=== PATIENT | male | born 1955 | race Caucasian/White ===

== ENCOUNTER 2017-12-25 20:29 | Emergency (ER) | payer OTHER, SELFPAY ==
[2017-12-25 20:34] VITALS: BP 127/72; PULSE 57; RESP 18; TEMP 37.1; O2SAT 56; BMI 25.7
--- NOTE | 2017-12-25 21:27 | PC.NURSE ---
reports 10/10 pain when chewing/cold/pressure
--- NOTE | 2017-12-25 21:35 | ED.DENTAL ---
HPI - Dental/Oral General Chief complaint: Dental/Oral Stated complaint: thinks he cracked a tooth Time Seen by Provider: 12/25/17 20:33 Source: patient and family Mode of arrival: ambulatory Limitations: no limitations History of Present Illness HPI Narrative: Patient presents to the ER with the chief complaint of R upper dental fracture while grinding his babita REYNOLDS Complaint: tooth pain and tooth injury 1. Onset (ago): hour(s) Duration: constant Severity: mild Exacerbating factors: chewing Context: history of dental caries Related Data Home Medications Medication Instructions Recorded Confirmed aspirin PRN #0 07/08/12 ibuprofen #0 07/08/12 lisinopril #0 07/08/12 simvastatin #0 07/08/12 Previous Rx's Medication Instructions Recorded hydrocodone-acetaminophen 1 tab PO Q6H PRN #10 tab 12/25/17 Allergies Allergy/AdvReac Type Severity Reaction Status Date / Time No Known Allergies Allergy Uncoded 11/09/17 12:21 Review of Systems Review of Systems All systems reviewed & are unremarkable except as noted in HPI and below Constitutional Denies chills, Denies fever(s), Denies lethargy and Denies weakness Eyes Denies change in vision, Denies eye discharge, Denies irritation and Denies loss of vision ENT Ears, Nose, Mouth, and Throat: Denies change in voice, Reports mouth pain, Denies neck pain and Denies sore throat Cardiovascular Denies chest pain, Denies irregular heart rhythm, Denies lightheadedness, Denies palpitations, Denies dyspnea, Denies dyspnea on exertion and Denies orthopnea Respiratory Denies cough, Denies dyspnea, Denies dyspnea on exertion and Denies wheezing Gastrointestinal Gastrointestinal: Denies abdominal pain, Denies change in bowel habits, Denies diarrhea, Denies nausea and Denies vomiting Genitourinary Denies hematuria, Denies flank pain, Denies urinary incontinence and Denies urinary urgency Musculoskeletal Denies neck pain Integumentary/Breasts Denies pruritus, Denies erythema, Denies rash and Denies wounds Neurologic Denies confusion, Denies loss of vision and Denies weakness Psychiatric Denies anxiety, Denies confusion, Denies depression, Denies homicidal ideation and Denies suicidal ideation Endocrine Denies palpitations Hematologic/Lymphatic Denies easy bruising Allergic/Immunologic Denies wheezing PFSH Social History Smoking Status: Never smoker Exam Initial Vital Signs Initial Vital Signs: Vital Signs Temperature 98.7 F 12/25/17 20:34 Pulse Rate 57 L 12/25/17 20:34 Respiratory Rate 18 12/25/17 20:34 Blood Pressure 127/72 H 12/25/17 20:34 Pulse Oximetry 56 L 12/25/17 20:34 Const General: cooperative and well developed Nutritional Appearance: well nourished Orientation: alert, awake, oriented x3 and not confused HENMI Head: normocephalic and atraumatic Ears: external ears normal and TM's normal bilaterally Nose: external nose normal and No nasal discharge Face and sinus: sinuses nontender, face symmetric, no sinus tenderness and No dry mucous membranes Mouth: oral mucosae normal and moist mucous membranes Teeth and gingiva: abnormal tooth or associated gingiva Throat: tonsils normal and uvula midline Resp Effort & Inspection: normal respiratory effort, able to speak in complete sentences, no respiratory distress and no use of accessory muscles Auscultation: clear to auscultation bilaterally, no rales, no rhonchi and no wheezes GI Inspection: non-distended Palpation: soft, no hepatosplenomegaly, No guarding, No pulsatile mass and No tender Auscultation: normal bowel sounds Skin General: no rashes or lesions noted, No jaundice and No petechiae Neuro General: alert, oriented x3, gait normal and no focal motor deficits Speech: speech normal Psych Appearance: well kempt Mental Status: mental status grossly normal Attitude: cooperative Thought Content: normal and suicidality Judgment: judgment good Course Orders Ordered: Discontinued Medications Hydrocodone Bitart/Acetaminophen (Vicodin Prepack) 1 bottle [facility] SEEINSTR ONE Stop: 12/25/17 21:37 Last Admin: 12/25/17 21:45 Dose: 1 bottle Vital Signs - 8 hr 12/25/17 20:34 12/25/17 21:49 Temperature 98.7 F Pulse Rate 57 L 61 Respiratory Rate 18 16 Blood Pressure 127/72 H 122/72 H Pulse Oximetry 56 L 99 Discharge Plan Departure Patient Disposition: Home, Self-Care Clinical Impression: Toothache Discharge Date/Time: 12/25/17 21:50 Interventions: ED Discharge Assessment Last Done: 12/25/17 21:49 Instructions: DI for Dental Pain Activity Restrictions/Additional Instructions: Please follow-up with your dentist Jacqueline morning, I provided contact info for Dr. Almanza if your dentist is unable to see You Take Motrin around the clock for anti-inflammatory and pain control You have been prescribed narcotic medications. While on these medications you cannot drive or operate heavy machinery. Additionally you cannot sign legal documents or perform any duties such as this. Many people get constipated on narcotic medications so it would be advisable to discuss stool softeners with the pharmacist when you pharmacy picking tech your prescription. Please understand that we cannot provide further refills of narcotics or controlled substances through the ED and your pain management will need to be through your Primary Care Provider Prescriptions: New hydrocodone-acetaminophen 5-325 mg tablet 1 tab PO Q6H PRN (Reason: pain) Qty: 10 RF: 0 No Action simvastatin 20 MG tablet Qty: 0 RF: 0 aspirin 81 MG tablet,delayed release (DR/EC) PRN (Reason: Pain, Mild) Qty: 0 RF: 0 lisinopril 10 MG tablet Qty: 0 RF: 0 ibuprofen 600 MG tablet Qty: 0 RF: 0 Referrals: Lucio Almanza DMD [Physician] - Kerwin Lal MD [Primary Care Provider] -
[2017-12-25] MEDS: HYDROCODONE/ACET 5/325 PREPACK 1 BOTTLE MISC (21:45)
[2017-12-25 21:49] VITALS: BP 122/72; PULSE 61; RESP 16; O2SAT 99
--- NOTE | 2017-12-26 03:18 | ED_ITS ---
HPI - Dental/Oral General Chief complaint: Dental/Oral Stated complaint: thinks he cracked a tooth Time Seen by Provider: 12/25/17 20:33 Source: patient and family Mode of arrival: ambulatory Limitations: no limitations History of Present Illness HPI Narrative: Patient presents to the ER with the chief complaint of R upper dental fracture while grinding his babita REYNOLDS Complaint: tooth pain and tooth injury 2 1. Onset (ago): hour(s) Duration: constant Severity: mild Exacerbating factors: chewing Context: history of dental caries Related Data Home Medications Medication Instructions Recorded Confirmed aspirin PRN #0 07/08/12 ibuprofen #0 07/08/12 lisinopril #0 07/08/12 simvastatin #0 07/08/12 Previous Rx's Medication Instructions Recorded hydrocodone-acetaminophen 1 tab PO Q6H PRN #10 tab 12/25/17 Allergies Allergy/AdvReac Type Severity Reaction Status Date / Time No Known Allergies Allergy Uncoded 11/09/17 12:21 Review of Systems Review of Systems All systems reviewed & are unremarkable except as noted in HPI and below Constitutional Denies chills, Denies fever(s), Denies lethargy and Denies weakness Eyes Denies change in vision, Denies eye discharge, Denies irritation and Denies loss of vision ENT Ears, Nose, Mouth, and Throat: Denies change in voice, Reports mouth pain, Denies neck pain and Denies sore throat Cardiovascular Denies chest pain, Denies irregular heart rhythm, Denies lightheadedness, Denies palpitations, Denies dyspnea, Denies dyspnea on exertion and Denies orthopnea Respiratory Denies cough, Denies dyspnea, Denies dyspnea on exertion and Denies wheezing Gastrointestinal Gastrointestinal: Denies abdominal pain, Denies change in bowel habits, Denies diarrhea, Denies nausea and Denies vomiting Genitourinary Denies hematuria, Denies flank pain, Denies urinary incontinence and Denies urinary urgency Musculoskeletal Denies neck pain Integumentary/Breasts Denies pruritus, Denies erythema, Denies rash and Denies wounds Neurologic Denies confusion, Denies loss of vision and Denies weakness Psychiatric Denies anxiety, Denies confusion, Denies depression, Denies homicidal ideation and Denies suicidal ideation Endocrine Denies palpitations Hematologic/Lymphatic Denies easy bruising Allergic/Immunologic Denies wheezing PFSH Social History Smoking Status: Never smoker Exam Initial Vital Signs Initial Vital Signs: Vital Signs Temperature 98.7 F 12/25/17 20:34 Pulse Rate 57 L 12/25/17 20:34 Respiratory Rate 18 12/25/17 20:34 Blood Pressure 127/72 H 12/25/17 20:34 Pulse Oximetry 56 L 12/25/17 20:34 Const General: cooperative and well developed Nutritional Appearance: well nourished Orientation: alert, awake, oriented x3 and not confused [facility] Head: normocephalic and atraumatic Ears: external ears normal and TM's normal bilaterally Nose: external nose normal and No nasal discharge Face and sinus: sinuses nontender, face symmetric, no sinus tenderness and No dry mucous membranes Mouth: oral mucosae normal and moist mucous membranes Teeth and gingiva: abnormal tooth or associated gingiva Throat: tonsils normal and uvula midline Resp Effort & Inspection: normal respiratory effort, able to speak in complete sentences, no respiratory distress and no use of accessory muscles Auscultation: clear to auscultation bilaterally, no rales, no rhonchi and no wheezes GI Inspection: non-distended Palpation: soft, no hepatosplenomegaly, No guarding, No pulsatile mass and No tender Auscultation: normal bowel sounds Skin General: no rashes or lesions noted, No jaundice and No petechiae Neuro General: alert, oriented x3, gait normal and no focal motor deficits Speech: speech normal Psych Appearance: well kempt Mental Status: mental status grossly normal Attitude: cooperative Thought Content: normal and suicidality Judgment: judgment good Course Orders Ordered: Discontinued Medications Hydrocodone Bitart/Acetaminophen (Vicodin Prepack) 1 bottle [facility] ONE Stop: 12/25/17 21:37 Last Admin: 12/25/17 21:45 Dose: 1 bottle Vital Signs - 8 hr 12/25/17 20:34 12/25/17 21:49 Temperature 98.7 F Pulse Rate 57 L 61 Respiratory Rate 18 16 Blood Pressure 127/72 H 122/72 H Pulse Oximetry 56 L 99 Discharge Plan Departure Patient Disposition: Home, Self-Care Clinical Impression: Toothache Discharge Date/Time: 12/25/17 21:50 Interventions: ED Discharge Assessment Last Done: 12/25/17 21:49 Instructions: DI for Dental Pain Activity Restrictions/Additional Instructions: Please follow-up with your dentist Jacqueline morning, I provided contact info for Dr. Almanza if your dentist is unable to see You Take Motrin around the clock for anti-inflammatory and pain control You have been prescribed narcotic medications. While on these medications you cannot drive or operate heavy machinery. Additionally you cannot sign legal documents or perform any duties such as this. Many people get constipated on narcotic medications so it would be advisable to discuss stool softeners with the pharmacist when you cone picker your prescription. Please understand that we cannot provide further refills of narcotics or controlled substances through the ED and your pain management will need to be through your Primary Care Provider Prescriptions: New hydrocodone-acetaminophen 5-325 mg tablet 1 tab PO Q6H PRN (Reason: pain) Qty: 10 RF: 0 No Action simvastatin 20 MG tablet Qty: 0 RF: 0 aspirin 81 MG tablet,delayed release (DR/EC) PRN (Reason: Pain, Mild) Qty: 0 RF: 0 lisinopril 10 MG tablet Qty: 0 RF: 0 ibuprofen 600 MG tablet Qty: 0 RF: 0 Referrals: Lucio Almanza DMD [Physician] - Kerwin Lal MD [Primary Care Provider] -
== END 2017-12-25 21:50 | disposition home or self-care (01) ==
PROVIDERS: Emergency Provider Emergency Medicine; PCP Internal Medicine
DX: K08.89 Other specified disorders of teeth and supporting structures (principal)
CPT/HCPCS: 99282; 99283

== ENCOUNTER 2019-02-21 10:34 | Day surgery (SDC) | payer OTHER, SELFPAY ==
[2019-02-21] VITALS (7 sets, daily range): BP systolic 108–121; BP diastolic 66–75; PULSE 54–71; RESP 10–16; TEMP 36.4–36.9; O2SAT 93–99; BMI 26.3
--- NOTE | 2019-02-21 12:25 | PM.HP.1 ---
History of Present Illness Chief complaint: 44520 Patient History Medical History (Updated 02/21/19 @ 12:26 by Mirian Diop MD) Hypercholesterolemia (Acute) Hypertension (Acute) Social History household members: spouse Smoking Status: Never smoker Family & Social History Social History: household members spouse Tobacco & Substance use: Smoking Status Never smoker alcohol intake frequency 0-2 drinks per day Substance Use Type does not use Meds Home Medications Medication Instructions Recorded Confirmed Type lisinopril 5 mg DAILY #0 07/08/12 History rosuvastatin 10 mg DAILY 02/21/19 02/21/19 History Allergies Allergy/AdvReac Type Severity Reaction Status Date / Time No Known Allergies Allergy Uncoded 11/09/17 12:21 Exam Vital Signs (past 8 hours): - 02/21/19 10:52 Temperature 97.5 F L Pulse Rate 62 Respiratory Rate 15 Blood Pressure 121/72 Pulse Oximetry 97 Oxygen Delivery Method Room Air Narrative Exam Narrative: Oropharynx free of lesions Chest clear to auscultation percussion Cardiac exam reveals no S3 or murmur Assessment & Plan Assessment & Plan narrative: History of colon polyps need for follow-up colonoscopy. Risks, benefits, alternatives have been explained.
--- NOTE | 2019-02-21 12:26 | PM.OP.ENDO ---
Operative Date/Time/Diagnoses Date of procedure: 02/21/19 Time of procedure: 12:27 Pre-op diagnosis: See indication and findings Procedure & Clinicians Study performed: Colonoscopy Same procedure as scheduled: Yes Indications: History of colon polyps Surgeon: Mirian Diop Procedure Notes Procedure in detail: After informed consent was obtained the patient was placed in left lateral decubitus position video colonoscope was introduced the rectum slowly advanced to the cecum. Preparation was good. On slow withdrawal mucosa looked carefully examined. On withdrawal retroflexed view in the rectum was performed. Patient tolerated procedure well Blood loss none Complications none Sedation Total sedation time 17 minutes Versed 6 mg fentanyl 100 micro g IV titration Findings 1. Normal colonoscopy to cecum Follow-up colonoscopy in 10 years.
[2019-02-21] MEDS: fentaNYL 250 MCG/5 ML INJ IV (12:50)
[2019-02-21] MEDS: MIDAZOLAM 5 MG/5 ML VIAL IV (12:51)
--- NOTE | 2019-02-21 13:23 | SUR.PHASEI ---
1312 Aroused easily to voice, oriented, HOB elevated, water given. Asking appropriate questions. Report give to [facility]PD RN.
== END 2019-02-21 13:40 | disposition home or self-care (01) ==
LOC: ENDO 10:34
PROVIDERS: PCP Internal Medicine; Visit Provider Internal Medicine Gastroenterology
PROC: 0DJD8ZZ Inspection of Lower Intestinal Tract, Via Natural or Artificial Opening Endoscopic (ICD-10-PCS; CPT 45378; principal; 2019-02-21 12:30)
DX: Z86.010 Personal history of colon polyps (principal); E78.00 Pure hypercholesterolemia, unspecified; I10 Essential (primary) hypertension
CPT/HCPCS: 45378; J2250; J3010

== ENCOUNTER → 2020-05-14 19:14 | Outpatient (ROUT) | payer OTHER, SELFPAY ==
[2020-05-14 19:41] LABS: Aspartate Aminotransferase 31 IU/L (17-59); BUN Creatinine Ratio 18.4 (6-22); Blood Urea Nitrogen 14 mg/dL (9-20); Calcium 9.6 mg/dL (8.4-10.2); Carbon Dioxide 31 mmol/L (22-32); Chloride 105 mmol/L (98-107); Cholesterol 105 mg/dL (140-199); Estimated Glomerular Filt Rate > 60.0 mL/min (>60); Glucose 95 mg/dL (80-110); HDL Cholesterol 43 mg/dL (40-60); HEMOLYSIS < 15 (0-50); LDL Cholesterol Calculated 48 mg/dL (<100); Potassium 4.4 mmol/L (3.4-5.1); Sodium 141 mmol/L (137-145); Triglycerides 72 mg/dL (35-150)
== END ==
PROVIDERS: PCP Internal Medicine; Visit Provider Internal Medicine
DX: N40.1 Benign prostatic hyperplasia with lower urinary tract symptoms (principal); I10 Essential (primary) hypertension; E78.2 Mixed hyperlipidemia
CPT/HCPCS: 80048; 80061; 84153; 84450

== ENCOUNTER → 2021-11-18 16:11 | Outpatient (CLI) | payer OTHER, SELFPAY ==
[2021-11-18 17:14] LABS: Hematocrit 48.3 % (41-53); Hemoglobin 16.3 g/dL (13.5-17.5); Mean Corpuscular HGB Conc 33.9 % (30-36); Mean Corpuscular Hemoglobin 30.9 PG (26-34); Mean Corpuscular Volume 91.3 fL (80-100); Platelet Count 202 X10^3/uL (150-400); Red Blood Cell Count 5.28 X10^6/uL (4.5-5.9); Red Cell Distribution Width 13.6 % (11.6-14.8); White Blood Cell Count 6.6 X10^3/uL (4.5-11.0)
[2021-11-18 17:27] LABS: Alanine Aminotransferase 20 IU/L (<50); Albumin 4.6 g/dL (3.5-5.0); Albumin Globulin Ratio 1.4 (1.0-2.8); Alkaline Phosphatase 47 U/L (38-126); Aspartate Aminotransferase 32 IU/L (17-59); BUN Creatinine Ratio 18.6 (6-22); Bilirubin Total 0.4 mg/dL (0.2-1.3); Blood Urea Nitrogen 16 mg/dL (9-20); Calcium 8.8 mg/dL (8.4-10.2); Carbon Dioxide 29 mmol/L (22-32); Chloride 105 mmol/L (98-107); Cholesterol 143 mg/dL (140-199); Estimated Glomerular Filt Rate > 60 mL/min (>60); Globulin 3.2 g/dL (1.7-4.1); Glucose 92 mg/dL (80-110); HDL Cholesterol 43 mg/dL (40-60); HEMOLYSIS 17 (0-50); LDL Cholesterol Calculated 76 mg/dL (<100); Potassium 4.1 mmol/L (3.4-5.1); Sodium 142 mmol/L (137-145); Total Protein 7.8 g/dL (6.3-8.2); Triglycerides 121 mg/dL (35-150)
[2021-11-18 17:56] LABS: Prostate Specific Antigen Scrn 0.303 ng/mL (0.1-4.0)
== END ==
PROVIDERS: PCP Internal Medicine; Referring Provider Internal Medicine; Visit Provider Internal Medicine
DX: Z00.00 Encounter for general adult medical examination without abnormal findings (principal); E78.2 Mixed hyperlipidemia; Z12.5 Encounter for screening for malignant neoplasm of prostate
CPT/HCPCS: 36415; 80053; 80061; 84443; 85027; G0103

== ENCOUNTER → 2023-08-25 08:32 | Outpatient (CLI) | payer OTHER, SELFPAY ==
--- NOTE | 2023-08-25 08:33 | DI.RAD.S_ITS ---
PROCEDURE: XR LUMBAR SPINE 2-3V INDICATIONS: low back pain TECHNIQUE: 3 views of the lumbar spine were acquired. COMPARISON: [facility], , L-SPINE 2-3 VIEWS, 12/22/2015, 10:17. FINDINGS: Bones: 5 [id number] vertebrae are present. There is normal bony alignment. No vertebral body compression fractures. There is loss of the expected lumbar lordosis unchanged from the study dated December 22, 2015. Slightly increased degenerative changes are present at L3-4, L4-5, and L5-S1 including intervertebral disc space narrowing, endplate sclerosis, and osteophytosis. Soft tissues: Overlying bowel gas pattern is normal. No suspicious soft tissue calcifications. IMPRESSION: No acute bony abnormality. Increased degenerative change when compared with the 2016 study. No compression deformities. Dictated by: Paulina Abarca M.D. on 08/25/2023 at 13:36 Approved by: Paulina Abarca M.D. on 08/25/2023 at 13:37
[2023-08-25 10:30] LABS: Aspartate Aminotransferase 31 IU/L (17-59); BUN Creatinine Ratio 16.7 (6-22); Blood Urea Nitrogen 14 mg/dL (9-20); Calcium 9.4 mg/dL (8.4-10.2); Carbon Dioxide 28 mmol/L (22-32); Chloride 104 mmol/L (98-107); Cholesterol 129 mg/dL (140-199); Estimated Glomerular Filt Rate > 60 mL/min (>60); Glucose 96 mg/dL (80-110); HDL Cholesterol 42 mg/dL (40-60); HEMOLYSIS < 15 (0-50); LDL Cholesterol Calculated 63 mg/dL (<100); Potassium 4.9 mmol/L (3.4-5.1); Sodium 139 mmol/L (137-145); Triglycerides 120 mg/dL (35-150)
[2023-08-25 10:57] LABS: Prostate Specific Antigen 0.428 ng/mL (0.10-4.00)
== END ==
PROVIDERS: PCP Internal Medicine; Referring Provider Internal Medicine; Visit Provider Internal Medicine
DX: M47.816 Spondylosis without myelopathy or radiculopathy, lumbar region (principal); M47.817 Spondylosis without myelopathy or radiculopathy, lumbosacral region; E78.2 Mixed hyperlipidemia; N40.0 Benign prostatic hyperplasia without lower urinary tract symptoms; M54.50 Low back pain, unspecified; G89.29 Other chronic pain
CPT/HCPCS: 36415; 72100; 80048; 80061; 84153; 84450

== ENCOUNTER → 2024-09-12 12:56 | Outpatient (CLI) | payer OTHER, SELFPAY ==
[2024-09-12 13:52] LABS: Aspartate Aminotransferase 31 IU/L (17-59); BUN Creatinine Ratio 14.8 (6-22); Blood Urea Nitrogen 13 mg/dL (9-20); Calcium 9.6 mg/dL (8.4-10.2); Carbon Dioxide 29 mmol/L (22-32); Chloride 104 mmol/L (98-107); Cholesterol 136 mg/dL (140-199); Estimated Glomerular Filt Rate > 60 mL/min (>60); Glucose 105 mg/dL (80-110); HDL Cholesterol 40 mg/dL (40-60); HEMOLYSIS < 15 (0-50); LDL Cholesterol Calculated 34 mg/dL (<100); Potassium 4.5 mmol/L (3.4-5.1); Sodium 139 mmol/L (137-145); Triglycerides 310 mg/dL (35-150)
[2024-09-12 14:21] LABS: Prostate Specific Antigen 0.405 ng/mL (0.10-4.00)
== END ==
PROVIDERS: PCP Internal Medicine; Referring Provider Internal Medicine; Visit Provider Internal Medicine
DX: N40.1 Benign prostatic hyperplasia with lower urinary tract symptoms (principal); N13.8 Other obstructive and reflux uropathy; E78.2 Mixed hyperlipidemia; R03.0 Elevated blood-pressure reading, without diagnosis of hypertension
CPT/HCPCS: 36415; 80048; 80061; 84153; 84450